=== PATIENT | male | born 1940 | race Caucasian/White ===

== ENCOUNTER → 2017-12-23 | Outpatient (CLI) | payer OTHER, MEDICARE | LOC: CAT 06:05 | DX: R91.1 Solitary pulmonary nodule (principal) ==

== ENCOUNTER → 2018-03-07 | Outpatient (CLI) | payer OTHER, MEDICARE ==
[~2018-03-07] MED LIST: ALENDRONATE SOD35 MG PO; DIGOXIN125 MCG PO; FLOMAX0.4 MG PO; LASIX 40 MG TAB40 M2 PO; LISINOPRIL5 MG PO; PACERONE 200 M200 M1 PO; POTASSIUM20 PO; SYNTHROID150 MCG PO; TOPROL XL100 MG PO; XTANDI40 MG PO
--- NOTE | ~2018-03-07 | EKG ---
[address] [place] [address] ELECTROCARDIOGRAM REPORT Name: LAURYN JACOB Room #: [facility]#: [id number] Admission: 03/07/18 Attend Phys: Kyrie Jasso MD Discharge: Date of : 38 Report #: [id number] THIS REPORT FOR: //name// 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
== END | disposition home or self-care (01) ==
LOC: LITH 10:17
DX: N20.0 Calculus of kidney (principal); Z53.8 Procedure and treatment not carried out for other reasons; I48.91 Unspecified atrial fibrillation; G47.33 Obstructive sleep apnea (adult) (pediatric); Z85.828 Personal history of other malignant neoplasm of skin; Z87.19 Personal history of other diseases of the digestive system; Z85.46 Personal history of malignant neoplasm of prostate; Z98.890 Other specified postprocedural states; Z79.899 Other long term (current) drug therapy
CPT/HCPCS: 50010

== ENCOUNTER → 2018-07-13 | Outpatient (CLI) | payer OTHER, MEDICARE | LOC: CAT 07-12 13:18 | DX: I51.7 Cardiomegaly (principal); R91.1 Solitary pulmonary nodule ==

== ENCOUNTER → 2018-08-22 | Outpatient (CLI) | payer OTHER, MEDICARE | LOC: CAT 10:58 | DX: J98.4 Other disorders of lung (principal); R91.8 Other nonspecific abnormal finding of lung field; C61 Malignant neoplasm of prostate ==

== ENCOUNTER → 2018-12-28 | Outpatient (CLI) | payer OTHER, MEDICARE | LOC: CAT 10:13 | DX: R91.1 Solitary pulmonary nodule (principal); Z85.46 Personal history of malignant neoplasm of prostate; Z95.9 Presence of cardiac and vascular implant and graft, unspecified ==

== ENCOUNTER → 2019-04-05 | Outpatient (CLI) | payer OTHER, MEDICARE | LOC: CAT 09:42 | DX: I25.10 Atherosclerotic heart disease of native coronary artery without angina pectoris (principal); I70.0 Atherosclerosis of aorta; M25.78 Osteophyte, vertebrae; R91.8 Other nonspecific abnormal finding of lung field ==